=== PATIENT | female | born 1990 | race Caucasian/White ===

== ENCOUNTER 2021-03-22 20:02 | Inpatient (IN) | payer OTHER ==
[~2021-03-22] VITALS: Ht 170.2 cm; Wt 88.5 kg
[2021-03-22 22:30] LABS: BILIRUBIN NEGATIVE (NEGATIVE); BLOOD TRACE-INTACT Ery/uL (NEGATIVE); CLARITY CLEAR (CLEAR); COLOR YELLOW (YELLOW); GLUCOSE (U) NORMAL (NORMAL); HCT 31.4 % (37.0-47.0); HGB 10.9 g/dl (12.5-16.0); LEUKOCYTES 1+ Leu/uL (NEGATIVE); MCH 33.5 pg (25.0-31.0); MCHC 34.7 g/dL (32.0-36.0); MCV 96.6 fL (78.0-100.0); MPV 11.7 fL (6.0-9.5); NITRITE NEGATIVE (NEGATIVE); PROTEIN NEGATIVE (NEGATIVE); RBC 3.25 M/uL (4.20-5.40); RDW 13.8 % (11.5-14.0); SPECIFIC GRAVITY 1.025 (1.001-1.030); UROBILINOGEN 0.2 mg/dL (0.2-1.0); pH 6.5 (5.0-9.0)
[2021-03-22 22:50] LABS: BACTERIA 2+
[2021-03-22 22:58] LABS: RENAL EPITHELIAL CELLS RARE
[2021-03-22 23:49] LABS: ALBUMIN 2.9 g/dL (3.4-5.0); BILIRUBIN - TOTAL 0.6 mg/dL (0.2-1.0); BUN/CREAT RATIO (CALC) 19.2 RATIO; CREATININE 0.52 mg/dL (0.51-0.95); POTASSIUM 3.7 mmol/L (3.5-5.1); TOTAL PROTEIN 5.9 g/dL (6.4-8.2)
[2021-03-25 03:48] LABS: HCT 25.7 % (37.0-47.0); HGB 8.8 g/dl (12.5-16.0); MCH 33.3 pg (25.0-31.0); MCHC 34.2 g/dL (32.0-36.0); MCV 97.3 fL (78.0-100.0); MPV 10.6 fL (6.0-9.5); RBC 2.64 M/uL (4.20-5.40); WBC 11.5 K/uL (4.0-10.5)
[2021-03-26] MEDS ORDERED: ACETAMINOPHEN325 MG PO (14:42)
[2021-03-26] MEDS ORDERED: COLACE100 MG PO (14:42)
[2021-03-26] MEDS ORDERED: PRENATAL FORMU1 EACH PO (14:42)
[2021-03-26] MEDS ORDERED: KETOROLAC TROME10 MG PO (14:42)
[2021-03-26] MEDS ORDERED: VITAMIN D325 MC1 PO (14:42)
[2021-03-26] MEDS ORDERED: FEOSOL325 MG PO (14:42)
[2021-03-26] MEDS ORDERED: FOLIC ACID1 MG PO (14:42)
== END 2021-03-26 16:05 | disposition home or self-care (01) | DRG 806 ==
LOC: FOD 20:02 → FOB 20:03 → FOD 21:51 → FOB 21:52
PROVIDERS: ADMIT Specialist
PROC: 10D07Z6 Extraction of Products of Conception, Vacuum, Via Natural or Artificial Opening (ICD-10-PCS; principal; 2021-03-24)
PROC: 0KQM0ZZ Repair Perineum Muscle, Open Approach (ICD-10-PCS; 2021-03-24)
PROC: 3E0P7VZ Introduction of Hormone into Female Reproductive, Via Natural or Artificial Opening (ICD-10-PCS; 2021-03-24)
PROC: 3E033VJ Introduction of Other Hormone into Peripheral Vein, Percutaneous Approach (ICD-10-PCS; 2021-03-24)
DX: O99.02 Anemia complicating childbirth (principal); O99.12 Other diseases of the blood and blood-forming organs and certain disorders involving the immune mechanism complicating childbirth; Z37.0 Single live birth; Z3A.39 39 weeks gestation of pregnancy; D69.6 Thrombocytopenia, unspecified; Z20.822 Contact with and (suspected) exposure to COVID-19; O43.193 Other malformation of placenta, third trimester; O36.63X0 Maternal care for excessive fetal growth, third trimester, not applicable or unspecified; O43.123 Velamentous insertion of umbilical cord, third trimester; O70.1 Second degree perineal laceration during delivery
CPT/HCPCS: 36415; 80053; 81001; 85384; 86850; 86900; 86901; J0595; J2001; J2540; J7120; U0002